=== PATIENT | female | born 1945 | race Caucasian/White ===

== ENCOUNTER → 2018-01-16 | Outpatient (CLI) | payer MEDICARE, OTHER ==
[~2018-01-16] MED LIST: GADOBUTROL 10 MMOL/10 ML (GADAVIST) VIAL IV ONE
--- NOTE | 2018-01-16 10:03 | Diagnostic Imaging Report ---
INDICATION: Right lower extremity weakness. COMPARISON: None. FINDINGS: Three views of the lumbar spine are obtained. There is very minimal anterolisthesis of L5 on S1. Alignment is otherwise unremarkable. Vertebral body heights are maintained. There is no evidence of fracture or osseous destructive process. The pedicles appear intact. There is disc space narrowing throughout the lumbar spine. There is prominent anterior endplate spurring at L2-L3 and minimal endplate spurring throughout the remainder of the lumbar spine. The sacroiliac joints appear unremarkable. There is severe degenerative change of the right hip with joint space narrowing. There is some superior lateral displacement of the femoral head with respect to the acetabulum with some prominent acetabular spurring. Findings may be partially due to some dysplasia. There are mild degenerative changes about the left hip. IMPRESSION: 1. Degenerative changes lumbar spine as described with minimal anterolisthesis of L5 on S1. 2. Severe degenerative change of the right hip with possible chronic findings of dysplasia. Dictated by: Dictated on workstation # [id number]
--- NOTE | 2018-01-16 12:11 | Diagnostic Imaging Report ---
PROCEDURE: MRI lumbar spine with and without contrast. TECHNIQUE: Multiplanar, multisequence MRI of the lumbar spine was performed with and without contrast. INDICATION: Back pain with worsening bilateral leg weakness and numbness right greater than left. No known discrete injury. Multiplanar and multisequence pre-and post-IV contrast-enhanced lumbar MRI performed. Comparison limited to the plain film radiographs performed this same date. FINDINGS: There was no abnormal enhancement following contrast. There were no findings suggestive of the MRI evidence for lumbar involvement by infection or neoplasm. There is no fracture or malalignment. Primary abnormality is found at the T11-T12 level where there is marked spondylosis, disc desiccation, loss of disc stature and bulging disc material posteriorly in conjunction with hypertrophic facet arthrosis and thickening of the ligamenta flava resulting in severe central canal stenosis with effacement of the ventral cord surface as well as of the facet arthrosis effacing the postero-lateral cord surface. Cord at this level is in addition to being thin showed abnormal areas of central T2 hyperintensity and is probably reflective of myelomalacia. No perlita swelling above or below the level of stenosis. No syrinx above or below. There is only mild degrees of biforaminal narrowing at the abnormal T11-T12 level. The T12-L1 level appeared normal. L1-L2: There is bulging disc material effacing and indenting the ventral thecal sac. There is mild thickening of ligamenta flava and facet arthrosis. Constellation of findings mildly narrow the spinal canal without substantial foraminal or recess narrowing. L2-L3: Ligamentum flava thickening, facet arthrosis, mild disc bulge and endplate osteophytes are present with resultant mild canal stenosis. No substantial foraminal or recess narrowing however. L3-L4: Ligamentous thickening, facet arthrosis, bulging disc material and endplate osteophytes conspire to result in a mild degree of canal stenosis. There is mild to moderate right and mild left foraminal narrowing. L4-L5: There is buckled thickened ligamenta flava and hypertrophic facet arthrosis. No substantial disc displacement and there is no significant narrowing of the thecal sac. Predominantly owing to endplate osteophytes. There is mild narrowing of the right neural foramen. L5-S1: Marked hypertrophy of the fluid containing facets without synovial cyst present. The disc shows mild desiccation, stature loss and diffuse bulge mildly narrowing the neural foramina bilaterally. No significant canal narrowing. IMPRESSION: 1. Severe canal stenosis T11-T12 where there is distortion and effacement of the cord and resultant features of a focal cord atrophy and myelomalacia. Cord above and below that level however appeared normal. There was no syrinx. Multilevel lumbar spondylosis and facet arthrosis with less severe multilevel canal and foraminal stenoses listed level by level above. No abnormal enhancement. No acute appearing abnormality. Dictated by: Dictated on workstation # [id number]
--- NOTE | 2018-01-16 13:00 | Diagnostic Imaging Report ---
INDICATION: Routine screening. COMPARISON: Comparison is made with prior studies from 03/24/2015 and 06/24/2013. The current study was also evaluated with a Computer Aided Detection (CAD) system. FINDINGS: Scattered fibronodular densities are identified bilaterally. The parenchymal pattern is stable. No dominant mass or malignant appearing microcalcifications are seen. The axillae are unremarkable. IMPRESSION: No mammographic features suspicious for malignancy are identified. ACR BI-RADS Category 1: Negative. Result letter will be mailed to the patient. Note: At least 10% of breast cancer is not imaged by mammography. Dictated by: Dictated on workstation # [id number]
== END ==
LOC: RAD 08:38
PROVIDERS: ATTEND Nurse Practitioner Family
DX: Z12.31 Encounter for screening mammogram for malignant neoplasm of breast (principal); M48.07 Spinal stenosis, lumbosacral region; M48.04 Spinal stenosis, thoracic region; M89.38 Hypertrophy of bone, other site; M51.26 Other intervertebral disc displacement, lumbar region; M46.87 Other specified inflammatory spondylopathies, lumbosacral region; M16.11 Unilateral primary osteoarthritis, right hip
CPT/HCPCS: 72100; 72158; 77067